=== PATIENT | male | born 1980 | race Caucasian/White ===

== ENCOUNTER → 2017-09-17 | Outpatient (CLI) | payer OTHER ==
[~2017-09-17] MED LIST: METROPOLOL 25MG
== END | disposition home or self-care (01) ==
LOC: NUCLEAR 07:45
DX: E03.8 Other specified hypothyroidism (principal)
CPT/HCPCS: 78012; A9531

== ENCOUNTER 2017-09-18 08:53 | Outpatient (CLI) | payer OTHER | END 2017-09-18 10:00 | disposition home or self-care (01) | LOC: NUCLEAR 08:53 | DX: E03.8 Other specified hypothyroidism (principal) | CPT/HCPCS: 78013; A9512 ==